=== PATIENT | female | born 1985 | race Caucasian/White ===

== ENCOUNTER 2020-02-23 05:19 | Inpatient (IN) ==
[2020-02-23] MEDS: LACTATED RINGER'S 1,000 ML IV PRN ×2 (05:30→06:36)
--- OUTSIDE RECORDS SUMMARY | 2020-02-23 05:30 | External Medical Summary | Continuity of Care Document ---
:1985 Author Name Mame Castro Address Unavailable Unavailable , Care Team Providers Name Role Phone Jena Castro Unavailable [email or web address] PCP, [email or web address] Unavailable Unavailable Problems Active medical history not documented Allergies and Adverse Reactions Allergy history not documented Medications Medications not documented Procedures Procedures not documented Immunizations Immunizations not documented Plan of Treatment Planned Observations Planned Goals not documented Results No Known Results Results not documented Encounters Appointment; Dakota Bella M.D. 06-Dec-2014 15:45 Encounter Diagnosis: Problem not documented
[2020-02-23] MEDS ORDERED: OXYTOCIN 30 UNITS/500 ML BAG IV PRN ×2 (05:33→09:57)
[2020-02-23] MEDS ORDERED: ePHEDrine sulfate 50 MG/ML AMP ONE (05:49)
[2020-02-23] MEDS ORDERED: BUPIVACAINE 0.25% 30 ML VIAL ONE (05:49)
[2020-02-23] MEDS ORDERED: fentaNYL citrate 100 MCG/2 ML VIAL ONE (05:50)
[2020-02-23] MEDS ORDERED: fentaNYL 2MCG/ML ROPIV 1.25MG/ML 100 ML BAG EPI ONE (05:50)
[2020-02-23 06:03] LABS: Hematocrit (blood only) 37.4 % (37-47); Hemoglobin 12.8 g/dL (12.0-16.0); Mean Corpuscular Hemoglobin 33.8 pg (25-34); Mean Corpuscular Volume 98.7 fL (80-100); Mean Platelet Volume 11.1 fL (7.4-10.4); Platelet Count 141 K/uL (130-400); RDW Coefficient of Variation 13.7 % (11.5-14.5); RDW Standard Deviation 49.6 fL (36.4-46.3); Red Blood Count 3.79 M/uL (4.2-5.4); White Blood Count 7.76 K/uL (4.8-10.8)
[2020-02-23] MEDS ORDERED: NALOXONE HCL 1 MG in SODIUM CHLORIDE 0.9% 1000ML 1,000 ML IV PRN (06:10)
[2020-02-23] MEDS ORDERED: NALBUPHINE HCL INJ 10 MG/ML AMP IV PRN (06:10)
[2020-02-23] MEDS ORDERED: ONDANSETRON INJ 2 MG/ML 2 ML VIAL IV PRN (06:10)
[2020-02-23] MEDS ORDERED: NALOXONE HCL 0.4 MG/1 ML VIAL/CARP IV PRN (06:10)
[2020-02-23] MEDS ORDERED: DiphenhydrAMINE HCL 50 MG/ML VIAL IV PRN (06:10)
[2020-02-23] MEDS ORDERED: ePHEDrine sulfate 50 MG/ML AMP IV PRN (06:10)
[2020-02-23] MEDS ORDERED: fentaNYL 2MCG/ML ROPIV 1.25MG/ML 100 ML BAG EPI PRN (06:10)
--- NOTE | 2020-02-23 06:12 | Anesthesiology Consultation ---
Date of Service February 23, 2020 Assessment & Plan Chart Review Chart Review: Patient NOT seen in Pre Admission Testing and Acceptable Risk for Labor Epidural Consults Requested none ASA ASA2 Proposed Anesthesia Anesthesia Type: Labor Epidural and CSE Risk / Benefits Reviewed With: PT / POA / Parent / Guardian, Accepts Plan and Informed Consent Obtained History Height/Weight Height: 5 ft 3 in Weight: 77.111 kg Allergies Allergy/AdvReac Type Severity Reaction Status Date / Time No Known Allergies Allergy Verified 11/23/14 11:54 Medications Home Medications Medication Instructions Recorded Confirmed Last Taken vit [id number] 1 tab PO DAILY 02/23/20 02/23/20 02/22/20 [ Vitamin] NPO Date Last Intake of Fluids: 02/22/20 Time Last Intake of Fluids: 18:30 Date Last Intake of Solids: 02/22/20 Time Last Intake of Solids: 18:30 Exercise / Class Metabolic Activity II 4-5 Yardwork/Stairs/Walk up hill Past Anesthesia History No Hx of Anesthesia Complications and No Family Hx of Anesthesia Complications History of PONV No Hx of PONV and No Hx of Motion Sickness Social History Smoking Status: Never smoker Hx Alcohol Use: No Hx Substance Use: No Review of Systems no chest pain or sob Physical Exam Vital Signs Last Vital Signs Temp 37.2 C 02/23/20 05:30 Pulse 93 H 02/23/20 06:10 Resp 18 02/23/20 05:30 Pulse Ox 100 02/23/20 06:10 BP 134/80 ENMT Mouth: no TMJ abnormality Thyromental Distance: > or= 3.5 Finger Breadths Mallampati Class: II Neck normal visual inspection Respiratory normal respiratory effort Auscultation: lungs clear to auscultation bilaterally Cardiovascular Rate/Rhythm: regular rate and regular rhythm Musculoskeletal Spine: normal cervical ROM Neurologic moves all extremities Psychiatric Orientation: alert and oriented x 3 Testing Laboratory Results 02/23/20 05:50
[2020-02-23 06:18] LABS: Mean Corpuscular Hgb Conc 34.2 g/dL (32-36)
--- NOTE | 2020-02-23 08:56 | History & Physical Report ---
Date of Service February 23, 2020 Assessment & Plan (1) Uterine contractions at greater than 20 weeks of gestation: 35 yo at 40.3 wks in active labor, epidural in place VSS Afebile GBS negative Anticipate History of Present Illness Primary Care Provider: NO PCP Patient is a 35 yo at 40.[address] Willoughby this morning in active labor and AROM'ed by him Received epidural, comfortable now Her has been uncomplicated Allergies Allergy/AdvReac Type Severity Reaction Status Date / Time No Known Allergies Allergy Verified 11/23/14 11:54 Home Medications Home Medications Medication Instructions Recorded Confirmed Type vit no.[id number] 1 tab PO DAILY 02/23/20 02/23/20 History [ Vitamin] Patient History Medical History Asthma Scoliosis Social History Preferred Language: Pashto Communication Ability: Effective Meter Repairer Required: No Beliefs That Will Affect Care: None marital status: Current Living Situation: Spouse and Family Other Information That Helps Us Care for You: No Feels Safe at Home: Yes Safety Concerns: Feels Safe At This Time Smoking Status: Never smoker Second Hand Exposure: No ; Hx Alcohol Use: No Hx Substance Use: No OB History 3 FT 's [employer] History No h/o STD's Review of Systems All systems reviewed & are unremarkable except as noted in HPI & below Physical Exam Constitutional: WD/WN, vitals as above well developed and well nourished Genitourinary: done by Dr Willoughby: 7cm, SROM'ed clear Results & Data Vital Signs (Past 12 Hours) Vital Signs Temp Pulse Resp BP Pulse Ox 02/23/20 08:45 63 100 02/23/20 08:44 59 L 110/68 02/23/20 08:40 56 L 18 100 02/23/20 08:35 55 L 99 02/23/20 08:30 58 L 112/67 100 02/23/20 08:26 59 L 92 02/23/20 08:25 58 L 18 100 02/23/20 08:20 55 L 100 02/23/20 08:15 58 L 100 02/23/20 08:14 56 L 116/71 02/23/20 08:10 63 18 98 02/23/20 08:09 72 94 02/23/20 08:05 58 L 100 02/23/20 08:00 53 L 100 02/23/20 07:59 48 L 114/68 02/23/20 07:55 55 L 18 100 02/23/20 07:50 60 98 02/23/20 07:45 50 L 113/70 100 02/23/20 07:40 51 L 20 100 02/23/20 07:35 54 L 100 02/23/20 07:30 52 L 100 02/23/20 07:29 51 L 110/67 02/23/20 07:25 55 L 20 100 02/23/20 07:20 62 99 02/23/20 07:16 58 L 93 02/23/20 07:15 53 L 105/60 98 02/23/20 07:10 36.9 C 58 L 20 98 02/23/20 07:05 60 97 02/23/20 07:00 60 18 113/66 99 02/23/20 06:55 65 115/57 L 98 02/23/20 06:50 69 100 02/23/20 06:49 77 112/66 02/23/20 06:45 66 99 02/23/20 06:44 74 120/82 02/23/20 06:40 66 100 02/23/20 06:39 66 117/69 02/23/20 06:35 63 100 02/23/20 06:32 66 109/54 L 02/23/20 06:30 66 99 02/23/20 06:28 59 L 115/62 02/23/20 06:26 63 111/57 L 02/23/20 06:25 67 100 02/23/20 06:24 93 H 124/54 L 02/23/20 06:22 84 115/55 L 02/23/20 06:20 82 100 02/23/20 06:15 92 H 100 02/23/20 06:10 93 H 100 02/23/20 05:31 37.2 C 18 02/23/20 05:30 37.2 C 18 Monitoring External Monitor Categ I Tocodynamometer ctxsq 2-4 min
[2020-02-23] MEDS ORDERED: DIPHTHERIA/TETANUS/PERTUSSIS 0.5 ML SYR/VIAL IM ONE (09:57)
[2020-02-23] MEDS ORDERED: HYDROCORTISONE ACETATE 25 MG SUPP PR PRN (09:57)
[2020-02-23] MEDS ORDERED: BENZOCAINE 20% AER SPR 82.5 GM CAN EXT PRN (09:57)
[2020-02-23] MEDS ORDERED: ACETAMINOPHEN 325 MG TAB PO PRN (09:57)
[2020-02-23] MEDS ORDERED: SUPERCREAM 0.870% 15 GM JAR EXT PRN (09:57)
[2020-02-23] MEDS ORDERED: bisacodyL 10 MG SUPP PR PRN (09:57)
--- NOTE | 2020-02-23 10:14 | Delivery Summary ---
DATE OF OPERATION: 02/23/2020 TIME: 9:43 a.m. DETAILS OF DELIVERY: The patient was found to be fully dilated and desired to push. She pushed only once and delivered the head without difficulty. Shoulders were delivered with minimal traction. Baby was handed off to the mother where mouth and nose were suctioned. Cord was clamped x2 and cut at 1 minute delay. Cord blood was obtained. Vagina and perineum were checked for lacerations. They were intact. No lacerations were found and placenta was found to be in the vagina, delivered spontaneous as intact and complete. Uterus was explored, found to be empty. Fundus was firm. EBL was 50 mL. Mom and baby tolerated the procedure well. Sponge, lap, instrument count was correct x2. Baby was a viable male , Apgars 8/9, weight is 4037 gr. No complications happened and I was present during whole procedure. I attest to the content of the Intraoperative Record and any orders documented therein. Any exceptions are noted below. KAREND
--- NOTE | 2020-02-23 11:14 | Anesthesiology Progress Note ---
Date of Service February 23, 2020 Anesthesia Post Procedure Vital Signs Vital Signs: Temp Pulse Resp BP Pulse Ox 02/23/20 11:10 70 98 02/23/20 11:05 77 98 02/23/20 11:00 60 97 02/23/20 10:59 60 112/63 02/23/20 10:55 65 98 02/23/20 10:50 67 97 02/23/20 10:45 77 98 02/23/20 10:44 61 112/62 02/23/20 10:40 65 98 02/23/20 10:35 66 97 02/23/20 10:30 70 99 02/23/20 10:29 70 113/59 L 02/23/20 10:25 64 97 02/23/20 10:20 77 98 02/23/20 10:15 62 98 02/23/20 10:14 81 117/68 02/23/20 10:10 69 99 02/23/20 10:07 80 93 02/23/20 10:05 82 96 02/23/20 10:00 69 112/57 L 100 02/23/20 09:55 66 98 02/23/20 09:50 67 97 02/23/20 09:45 76 99 02/23/20 09:44 98 H 125/63 94 02/23/20 09:40 70 100 02/23/20 09:35 61 100 02/23/20 09:30 58 L 100 02/23/20 09:29 59 L 122/64 02/23/20 09:25 66 100 02/23/20 09:20 64 100 02/23/20 09:16 57 L 111/68 02/23/20 09:15 57 L 99 02/23/20 09:10 64 18 100 02/23/20 09:05 62 99 02/23/20 09:00 70 119/71 100 02/23/20 08:55 37.5 C 60 18 100 02/23/20 08:50 60 100 02/23/20 08:45 63 100 02/23/20 08:44 59 L 110/68 02/23/20 08:40 56 L 18 100 02/23/20 08:35 55 L 99 02/23/20 08:30 58 L 112/67 100 02/23/20 08:26 59 L 92 02/23/20 08:25 58 L 18 100 05/06/20 08:20 55 L 100 02/23/20 08:15 58 L 100 02/23/20 08:14 56 L 116/71 02/23/20 08:10 63 18 98 02/23/20 08:09 72 94 02/23/20 08:05 58 L 100 02/23/20 08:00 53 L 100 02/23/20 07:59 48 L 114/68 02/23/20 07:55 55 L 18 100 02/23/20 07:50 60 98 02/23/20 07:45 50 L 113/70 100 02/23/20 07:40 51 L 20 100 02/23/20 07:35 54 L 100 02/23/20 07:30 52 L 100 02/23/20 07:29 51 L 110/67 02/23/20 07:25 55 L 20 100 02/23/20 07:20 62 99 02/23/20 07:16 58 L 93 02/23/20 07:15 53 L 105/60 98 02/23/20 07:10 36.9 C 58 L 20 98 02/23/20 07:05 60 97 02/23/20 07:00 60 18 113/66 99 02/23/20 06:55 65 115/57 L 98 02/23/20 06:50 69 100 02/23/20 06:49 77 112/66 02/23/20 06:45 66 99 02/23/20 06:44 74 120/82 02/23/20 06:40 66 100 02/23/20 06:39 66 117/69 02/23/20 06:35 63 100 02/23/20 06:32 66 109/54 L 02/23/20 06:30 66 99 02/23/20 06:28 59 L 115/62 02/23/20 06:26 63 111/57 L 02/23/20 06:25 67 100 02/23/20 06:24 93 H 124/54 L 02/23/20 06:22 84 115/55 L 02/23/20 06:20 82 100 02/23/20 06:15 92 H 100 02/23/20 06:10 93 H 100 02/23/20 05:31 37.2 C 18 02/23/20 05:30 37.2 C 18 Pain Intensity Abdomen: Pain Intensity: 0 Notes Mental Status: alert / awake / arousable Nausea / Vomiting: adequately controlled Pain: adequately controlled Airway Patency, RR, SpO2: stable & adequate BP & HR: stable & adequate Hydration State: stable & adequate Neuraxial Anesthesia: was administered and sensory block is resolving Anesthetic Complications: no major complications apparent and Pt Satisfied with anesthetic care
[2020-02-23] MEDS: IBUPROFEN 600 MG TAB PO PRN ×2 (15:38→20:30)
[2020-02-23] MEDS: DOCUSATE SODIUM 100 MG CAP PO SCH (20:30)
[2020-02-24] MEDS: IBUPROFEN 600 MG TAB PO PRN ×2 (04:20→08:26)
[2020-02-24 06:45] LABS: Hemoglobin 11.1 g/dL (12.0-16.0); Mean Corpuscular Hemoglobin 34.7 pg (25-34); Mean Corpuscular Hgb Conc 34.7 g/dL (32-36); Mean Platelet Volume 11.1 fL (7.4-10.4); Platelet Count 122 K/uL (130-400); RDW Standard Deviation 51.6 fL (36.4-46.3); White Blood Count 8.64 K/uL (4.8-10.8)
[2020-02-24] MEDS ORDERED: PRENATAL VITAMIN 1 TAB PO SCH (08:00)
[2020-02-24] MEDS ORDERED: FERROUS SULFATE 325 MG TAB PO SCH (08:00)
[2020-02-24] MEDS: DOCUSATE SODIUM 100 MG CAP PO SCH (08:27)
--- NOTE | 2020-02-24 10:39 | Obstetrical Progress Note ---
Date of Service February 24, 2020 Assessment & Plan Admission and Anticipated Discharge Date Admission Date: February 23, 2020 Subjective PPD#1 planning to go home out of bed ambulating well tolerating diet Physical Exam Constitutional: WD/WN, vitals as above comfortable abdomen soft and non- tender fundus firm no edema neg Bekah's for discharge Results & Data ([facility]) Vital Signs (Past 12 Hours) Vital Signs Temp Pulse Resp BP Pulse Ox 02/24/20 08:15 36.5 C 54 L 19 112/73 98 02/24/20 08:00 36.8 C 92 H 20 113/69 98 02/24/20 04:10 36.7 C 75 18 108/65 96 02/23/20 23:40 36.7 C 83 18 109/68 97 Laboratory Results 02/23/20 02/24/20 05:50 05:56 WBC 7.76 8.64 RBC 3.79 L 3.20 L Hgb 12.8 11.1 L Hct 37.4 32.0 L MCV 98.7 100.0 MCH 33.8 34.7 H MCHC 34.2 34.7 RDW Std Deviation 49.6 H 51.6 H RDW Coeff of Marco 13.7 14.0 Plt Count 141 122 L MPV 11.1 H 11.1 H
[2020-02-24] MEDS ORDERED: bisacodyL 5 MG TABEC PO SCH (20:00)
== END 2020-02-24 18:20 | disposition home or self-care (01) | DRG 807 ==
LOC: OPB 05:19 → 4S1 05:28 → 4S2 13:10